=== PATIENT | female | born 1970 | race Caucasian/White ===

== ENCOUNTER 2018-04-26 13:20 | Outpatient (CLI) | payer OTHER, MEDICAID | END 2018-04-26 23:59 | disposition home or self-care (01) | LOC: VAS 13:20 | PROVIDERS: ATTEND Family Medicine | DX: R60.0 Localized edema (principal); M79.661 Pain in right lower leg; Z87.891 Personal history of nicotine dependence | CPT/HCPCS: 93971 ==